=== PATIENT | female | born 1965 | race Caucasian/White ===

== ENCOUNTER → 2016-05-04 | Outpatient (CLI) | payer OTHER | LOC: COL.RAD 07:53 | DX: R79.89 Other specified abnormal findings of blood chemistry (principal) ==

== ENCOUNTER → 2016-09-13 | Outpatient (REF) | LOC: WSPT 07:30 → WSOH 07:38 | DX: Z02.1 Encounter for pre-employment examination (principal) ==

== ENCOUNTER → 2016-09-15 | Outpatient (REF) | LOC: WSOH 10:41 | DX: Z02.89 Encounter for other administrative examinations (principal) ==

== ENCOUNTER → 2016-09-25 | Outpatient (REF) | LOC: WSOH 15:28 | DX: Z02.89 Encounter for other administrative examinations (principal) ==

== ENCOUNTER → 2017-01-09 | Outpatient (CLI) | payer SELFPAY ==
[2017-01-09 19:54] LABS: ALANINE AMINOTRANSFERASE 29 U/L (9-52)
== END ==
LOC: COL.LAB 19:29
PROVIDERS: Family Medicine
DX: R94.5 Abnormal results of liver function studies (principal)

== ENCOUNTER → 2017-04-25 | Outpatient (CLI) | payer OTHER ==
[2017-04-25 12:47] LABS: MUCOUS Present /lpf; PH 5 (5-8); URINE APPEARANCE Hazy; URINE BACTERIA Rare /hpf; URINE BILIRUBIN Negative (NEGATIVE); URINE BLOOD 1+ (NEGATIVE); URINE COLOR Yellow; URINE GLUCOSE Negative (NEGATIVE); URINE KETONE Trace (NEGATIVE); URINE LEUKOCYTE ESTERASE 3+ (NEGATIVE); URINE NITRATE Negative (NEGATIVE); URINE PROTEIN(semi-quant) 1+ (NEGATIVE); URINE UROBILINOGEN Negative (NEGATIVE)
[2017-04-25 12:54] LABS: COLLECTION METHOD CLEAN CATCH
== END ==
LOC: COL.LAB 12:26
PROVIDERS: Nurse Practitioner Family
DX: R30.0 Dysuria (principal)

== ENCOUNTER → 2018-07-16 | Outpatient (CLI) | payer OTHER | LOC: MC.RAD 16:22 | DX: Z12.31 Encounter for screening mammogram for malignant neoplasm of breast (principal) ==

== ENCOUNTER → 2020-11-01 | Outpatient (CLI) | payer OTHER | LOC: MC.RAD 09:14 | DX: Z12.31 Encounter for screening mammogram for malignant neoplasm of breast (principal) ==